=== PATIENT | female | born 2000 | race Caucasian/White ===

== ENCOUNTER 2018-06-05 15:14 | Emergency (ER) | payer OTHER ==
[~2018-06-05] VITALS: Ht 167.6 cm; Wt 102.0 kg
[2018-06-05 15:20] VITALS: Ht 167.6 cm; Wt 102.0 kg
[2018-06-05] MEDS ORDERED: HYDROCODONE/APAP (5/325) TAB PO ONE (17:00)
[2018-06-05] MEDS ORDERED: NAPR-985 PO (17:45)
[2018-06-05 18:30] VITALS: BP 132/80; PULSE 98; RESP 20
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
== END 2018-06-05 18:31 | disposition home or self-care (01) ==
LOC: FTE 15:14
DX: M25.531 Pain in right wrist (principal); M25.512 Pain in left shoulder; R07.9 Chest pain, unspecified
CPT/HCPCS: 71045; 73110; Z7502; Z7610